=== PATIENT | male | born 1955 | race Caucasian/White ===

== ENCOUNTER 2020-05-20 16:38 | Emergency (ER) | payer OTHER ==
[2020-05-20] MEDS ORDERED: KETOROLAC TROMETHAMINE 60 MG/2 ML SDV IM ONE (17:27)
[2020-05-20] MEDS ORDERED: METHYLPREDNISOLONE INJ 125 MG/2 ML SDV IM ONE (17:27)
[2020-05-20] MEDS ORDERED: HYDROCODONE/ACETAMINOPHEN 5-325 MG (6 TAB/ER DISP) PO PRN (17:28)
--- NOTE | 2020-05-20 17:36 | ER Document Report ---
HPI - HPI Patient complains to provider of: chronic back pain Time Seen by Provider: 05/20/20 17:11 Context: 65-year-old male presents to the emergency room complaining of worsening chronic back pain that he has had ever since he had surgery back in 2017. States he was getting oxycodone after his surgery. [facility] and then will no longer give him any narcotics. States has been buying oxycodone on the street to help with his pain. He denies any new trauma or injury. States he has been incontinent since surgery and there is been no changes in his incontinence. States he is able to walk with a cane but is painful. States he is waiting for an appointment with a new primary care physician at the [place]. Associated Symptoms: None Exacerbated by: Movement Relieved by: Denies Similar symptoms previously: Yes - Chronic back pain Recently seen / treated by doctor: No - ROS Systems Reviewed and Negative: Yes All other systems reviewed and negative - CONSTITUTIONAL Constitutional: DENIES: Fever, Chills - NEURO Neurology: DENIES: Headache, Weakness - CARDIOVASCULAR Cardiovascular: DENIES: Chest pain - GASTROINTESTINAL Gastrointestinal: DENIES: Abdominal Pain - MUSCULOSKELETAL Musculoskeletal: REPORTS: Back Pain - DERM Skin Color: Normal Skin Problems: None Past Medical History - General Information source: Patient - Social History Smoking Status: Never Smoker Frequency of alcohol use: Previous history of alcohol abuse Drug Abuse: Marijuana Lives with: Friend Family History: Reviewed & Not Pertinent - Past Medical History Cardiac Medical History: Reports: Hx Hypertension Vertical Provider Document - CONSTITUTIONAL Agree With Documented VS: Yes Exam Limitations: No Limitations General Appearance: Moderate Distress - INFECTION CONTROL TRAVEL OUTSIDE OF THE U.S. IN LAST 30 DAYS: No - HEENT HEENT: Atraumatic, Normocephalic - NECK Neck: Normal Inspection, Supple - RESPIRATORY Respiratory: Breath Sounds Normal, No Respiratory Distress, Chest Non-Tender - CARDIOVASCULAR Cardiovascular: Regular Rate, Regular Rhythm - GI/ABDOMEN Gastrointestinal: Abdomen Soft, Abdomen Non-Tender - BACK Back: Abnormal Inspection - Tenderness from T4-T6, tenderness from L4-S1. Tenderness over the bilateral sciatic notches. Negative straight leg raising bilaterally. No obvious deformity noted. No step-offs.. negative: CVA Tenderness-Right, CVA Tenderness-Left - MUSCULOSKELETAL/EXTREMETIES Musculoskeletal/Extremeties: FROM - NEURO Level of Consciousness: Awake, Alert, Appropriate Motor/Sensory: No Motor Deficit, No Sensory Deficit - DERM Integumentary: Warm, Dry, No Rash Course - Re-evaluation Re-evalutation: 05/20/20 18:24 Patient is resting comfortably with decreased pain he is able to ambulate with the use of his cane. He is neurovascularly intact. Discussed with patient that with his chronic pain I can write him a one-time prescription for 12 Percocet but he cannot continue to get his narcotic prescriptions through the emergency room. 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 He is on Valium which he admitted to taking. He was counseled on the importance of outpatient follow-up with primary care physician for management of his chronic pain. Patient was given strict return to the emergency room guidelines. Return for any new or worsening symptoms. All questions were answered. Patient verbalized understanding and agrees with plan of care. 05/20/20 20:01 - Vital Signs Vital signs: Temp Pulse Resp BP Pulse Ox 98.6 F 64 20 141/98 H 97 05/20/20 16:44 05/20/20 16:44 05/20/20 16:44 05/20/20 16:44 05/20/20 16:44 Discharge - Discharge Clinical Impression: Chronic back pain Qualifiers: Back pain location: back pain in unspecified location Back pain laterality: midline Qualified Code(s): M54.9 - Dorsalgia, unspecified Condition: Stable Disposition: HOME, SELF-CARE Instructions: Chronic Back Pain ([facility]) Additional Instructions: Take medications as prescribed. Outpatient follow-up with your primary care physician as scheduled. Continue with your current home medications. Return to the emergency room for any new or worsening symptoms. Prescriptions: Prednisone [Deltasone 20 mg Tablet] See Protocol PO DAILY 9 Days #18 tablet Oxycodone HCl/Acetaminophen [Percocet 5-325 mg Tablet] 1 tab PO Q6H PRN #12 tablet PRN Reason: For Pain
[2020-05-20] MEDS ORDERED: HYDROCODONE/ACETAMINOPHEN 5-325 MG TABLET PO ONE (18:31)
[2020-05-20 18:57] VITALS: BP 158/87
== END 2020-05-20 18:51 | disposition home or self-care (01) ==
LOC: ER 16:38
DX: G89.29 Other chronic pain (principal); M54.9 Dorsalgia, unspecified; I10 Essential (primary) hypertension
CPT/HCPCS: 99284; 96372; J1885; J2930

== ENCOUNTER 2020-05-23 15:55 | Emergency (ER) | payer OTHER ==
[2020-05-23 17:44] LABS: ABSOLUTE MONOCYTES (AUTO) 0.7 10^3/uL (0.1-1.4); ABSOLUTE NEUT (AUTO) 3.6 10^3/uL (1.7-8.2); BASOPHILS % (AUTO) 0.3 % (0-2); EOSINOPHILS % (AUTO) 0.2 % (0-6); HEMATOCRIT 38.6 % (37.9-51.0); HEMOGLOBIN 12.7 g/dL (13.5-17.0); LYMPHOCYTES % (AUTO) 31.8 % (13-45); MEAN CORPUSCULAR HGB CONC 32.9 g/dL (32.0-36.0); MEAN CORPUSCULAR VOLUME 79 fl (80-97); MONOCYTES % (AUTO) 11.2 % (3-13); PLATELET COUNT 216 10^3/uL (150-450); RED BLOOD COUNT 4.87 10^6/uL (4.35-5.55); RED CELL DISTRIBUTION WIDTH 15.8 % (11.5-14.0); SEGMENTED NEUTROPHILS % (AUTO) 56.5 % (42-78); TOTAL CELLS COUNTED % (AUTO) 100 %; WHITE BLOOD COUNT 6.3 10^3/uL (4.0-10.5)
[2020-05-23 18:03] LABS: ACETAMINOPHEN < 10 ug/mL (10-30); ALBUMIN 3.9 g/dL (3.5-5.0); ALCOHOL < 10 mg/dL (NONE DETECTED); ALKALINE PHOSPHATASE 79 U/L (38-126); ANION GAP 6 (5-19); ASPARTATE AMINO TRANSFERASE 20 U/L (17-59); BILIRUBIN,DIRECT 0.2 mg/dL (0.0-0.4); BILIRUBIN,TOTAL 0.5 mg/dL (0.2-1.3); BLOOD UREA NITROGEN 18 mg/dL (7-20); CALCIUM 9.2 mg/dL (8.4-10.2); CARBON DIOXIDE 27 mmol/L (22-30); CHLORIDE 107 mmol/L (98-107); GLUCOSE 99 mg/dL (75-110); POTASSIUM 3.5 mmol/L (3.6-5.0); SALICYLATE < 1.0 mg/dL (2.0-20.0); TOTAL PROTEIN 6.4 g/dL (6.3-8.2)
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
--- NOTE | 2020-05-23 19:28 | EKG REPORT ---
SEVERITY:- NORMAL ECG - SINUS BRADYCARDIA : Confirmed by: Rosa Warren MD 23-May-2020 19:27:24
[2020-05-23] MEDS ORDERED: OXYCODONE-ACETAMINOPHEN 5-325 MG TABLET PO ONE (19:37)
--- NOTE | 2020-05-23 21:12 | ER Document Report ---
ED General - General TRAVEL OUTSIDE OF THE U.S. IN LAST 30 DAYS: No <FRANKIE WRAY - Last Filed: 05/23/20 21:06> <SARAHAMOR Adams - Last Filed: 05/23/20 23:33> - General Stated Complaint: POSSIBLE SEIZURE/FALL Time Seen by Provider: 05/23/20 16:51 - HPI Notes: Chief complaint: Lower back pain and tingling of both lower legs History of present illness: 65-year-old male followed by the [facility] with history of PTSD and prior history of prostatic CA who is been worked up very extensively by the [facility] in [facility] advised that he has some kind of a chronic neuropathy of the lower extremities. He has been told he is a "borderline diabetic". He has been treated with Neurontin and the right variety of pain medications. He recently came down here to live with 2 of his friends were retired police officers. He is in the process of establishing care with the [facility] locally. He has been seen by psychiatrist and is recently been given some benzodiazepine medications to deal with anxiety. He states that the [place] doctors have reluctant to give him any additional narcotic pain medication but he says his pain is getting worse and has now reached a point being intolerable. He says he has had numerous MRIs as recently as 6 weeks ago. He was told that he has a small iliac aneurysm feel was unrelated to his current symptoms. He also apparently has chronic degenerative disc disease. He was told there was no evidence of any recurrence of his prostate cancer any evidence of bony metastasis. Review of records here shows that this man was seen about 3 days ago by a nurse practitioner here and given a prescription for 12 tablets of Percocet. He still taking these and indicates that the help the pain somewhat already on totally relieve it. He came frustrated this afternoon and came to the lobby area and told the triage nurse that he "would be seen" immediately for his pain or he would shoot himself. He states now he clearly had no suicidal intent was simply frustrated trying to get attention. (FRANKIE WRAY) - Related Data Allergies/Adverse Reactions: barium iodide Allergy (Verified 05/23/20 18:41) Past Medical History - General Information source: Patient, [facility] Records - Social History Smoking Status: Former Smoker Frequency of alcohol use: None Drug Abuse: Marijuana Family History: Reviewed & Not Pertinent Patient has homicidal ideation: No - Past Medical History Cardiac Medical History: Reports: Hx Hypertension Neurological Medical History: Reports: Hx Seizures Psychiatric Medical History: Reports: Hx Depression Past Surgical History: Reports: Hx Cholecystectomy, Hx Orthopedic Surgery <FRANKIE WRAY - Last Filed: 05/23/20 21:06> Review of Systems <FRANKIE WRAY - Last Filed: 05/23/20 21:06> - Review of Systems Notes: Constitutional: As per HPI. HENT: As per HPI Eyes: Negative for drainage. Cardiovascular: Negative. Respiratory: As per HPI. Gastrointestinal: No vomiting or diarrhea. Genitourinary: Urinating normally. Musculoskeletal: As per HPI. Skin: Negative for rash. Neurological: As per HPI. 10 point ROS negative except as marked above and in HPI. (WRAYFRANKIE OWUSU) Physical Exam <FRANKIE WRAY - Last Filed: 05/23/20 21:06> - Vital signs Vitals: Temp Pulse Resp BP Pulse Ox 97.8 F 51 L 18 150/96 H 97 05/23/20 16:11 05/23/20 16:11 05/23/20 16:11 05/23/20 16:11 05/23/20 16:11 - Notes Notes: GENERAL: Elderly man appearing in no acute distress. SKIN: Good turgor no rashes. HEAD: Normocephalic atraumatic. EYES: PERRLA. EOMI. Conjunctivae and sclerae clear. EARS: CANALS AND TMS CLEAR. NOSE: CLEAR. MOUTH: Moist mucosa. Good dentition. No stridor or edema. No drooling. NECK: Supple. No masses or thyromegaly. No adenopathy. Carotids 2+ without bruits. No JVD. BACK: Symmetrical without tenderness. CHEST: Respirations unlabored. Breath sounds clear and symmetrical. HEART: Regular rhythm. No murmur gallop or rub. ABDOMEN: Soft nontender without masses, organomegaly or rebound. Bowel sounds normally active. No bruits. GENITALIA: Deferred. EXTREMITIES: No edema. No calf tenderness. Cap refill less than 1.5 seconds. Dorsalis pedis and posterior tibial pulses 3+ and symmetrical. NEUROLOGICAL: GCS 15. Alert and oriented x3. Normal gait. Fluent speech. Cranial nerves II through XII intact. Motor testing is normal and symmetrical. He is insensate from the knees distally and this is his baseline. PSYCHIATRIC: Appropriate affect. (FRANKIE WRAY) Course - Laboratory Result Diagrams: 05/23/20 16:12 05/23/20 16:12 <FRANKIE WRAY - Last Filed: 05/23/20 21:06> - Laboratory Result Diagrams: 05/23/20 16:12 05/23/20 16:12 <AMOR BALLARD JR - Last Filed: 05/23/20 23:33> - Re-evaluation Re-evalutation: 05/23/20 21:13 I have given his patient 2 Percocet tablets here. I am going to repeat imaging for him with a contrast CT of abdomen pelvis. He has been seen by psychiatry and they feel he could contract for safety and has no true suicidal intent. I would agree with this assessment. Patient is actually quite reasonable when I talked with him at some length about his overall condition. Plan at this time is to evaluate to be sure he does not have any new cause of his worsening back pain which would require urgent intervention. If he does not I told him that we should be able to give him some pain medications to take at home for the next day or 2 until he can [facility]. He seems very comfortable with this. Results of imaging studies are pending at this time and I am going to turn over further care at [address] Amor Ballard. (FRANKIE WRAY) - Vital Signs Vital signs: Temp Pulse Resp BP Pulse Ox 97.8 F 51 L 18 150/96 H 97 05/23/20 16:11 05/23/20 16:11 05/23/20 16:11 05/23/20 16:11 05/23/20 16:11 - Laboratory Laboratory results interpreted by me: 05/23/20 05/23/20 16:12 16:12 Hgb 12.7 L MCV 79 L MCH 26.0 L RDW 15.8 H Potassium 3.5 L Salicylates < 1.0 L Acetaminophen < 10 L Critical Care Note <AMOR BALLARD JR - Last Filed: 05/23/20 23:33> - Critical Care Note Comments: Please note Dr. Wray left this patient to me 1 hour after he was supposed to go home. The CT scan returned with the findings as read by radiologist as 2.9 cm AAA and should follow-up within 5 year for this. I advised patient 1 year for this. And also patient has diverticulosis but no diverticulitis and also patient has a right adrenal nodule and should be seen by clinician for rule out pheochromocytoma. There is nothing that would indicate here any acute problem. Advised patient to follow-up with personal doctor. I have evaluated patient at 2320 and he advises the reason why came in was for severe low back pain. He reports the Percocet that he was given here a few days ago does help with his pain and he will be seeing his personal doctor on 05 June. He reports he moved here from [place] to the [place] recently. I advised him of his CT reports and he advises me he began to have diarrhea yesterday. I will write him for Cipro Parafon forte and Carafate. Also you deny any suicidal ideation I agree with Dr. Wray about this. (AMOR BALLARD JR) Discharge <FRANKIE WRAY - Last Filed: 05/23/20 21:06> <AMOR BALLARD JR - Last Filed: 05/23/20 23:33> - Discharge Clinical Impression: AAA (abdominal aortic aneurysm) without rupture, Diverticulosis, Adrenal mass Diarrhea Qualifiers: Diarrhea type: unspecified type Qualified Code(s): R19.7 - Diarrhea, unspecified Chronic back pain Qualifiers: Back pain location: low back pain Back pain laterality: unspecified Sciatica presence: without sciatica Qualified Code(s): M54.5 - Low back pain; G89.29 - Other chronic pain Clinical Impression: (Ruled Out): Abdominal pain, AAA (abdominal aortic aneurysm) Condition: Stable Disposition: HOME, SELF-CARE Instructions: Abdominal Pain ([facility]), Low Back Pain ([facility]) Additional Instructions: Please note the radiologist read your CT as having 2.9 cm AAA and should follow- up with personal doctor for this and I recommended evaluation in 1 year. Radiologist recommended 5 years. Also it was found to have a right adrenal nod ule and should be ruled out by clinical personal doctor for pheochromocytoma. Also your CT revealed diverticulosis but not diverticulitis. Take pain medicine for your back pain as written and also follow-up with your doctor about your back pain. Call your doctor this week about this as well. May want to see pain management about your low back pain as well. [place] may see you for this. Also for your diarrhea we wrote for Cipro and Carafate. Return to ER if symptoms persist or worsen. Try not to advise anyone that you may commit suicide or homicide when you attempt to be seen in the ER otherwise you may be evaluated by psychiatry for this. Prescriptions: Sucralfate [Carafate 1 gm Tablet] 1 gm PO TID #40 tablet Ciprofloxacin HCl [Cipro 500 mg Tablet] 500 mg PO BID #20 tablet Chlorzoxazone [Parafon Forte Dsc 500 Mg Tablet] 500 mg PO BID #29 tablet
--- NOTE | 2020-05-23 21:29 | RADIOLOGY REPORT (SQ) ---
EXAM DESCRIPTION: CT abdomen and pelvis with contrast CLINICAL HISTORY: 65 years Male, hx. AAA, Back pain COMPARISON: None. TECHNIQUE: Axial images of the abdomen and pelvis were performed utilizing intravenous contrast, with sagittal and coronal reformatted images. This exam was performed according to our departmental dose-optimization program which includes use of Automated Exposure Control, adjustment of the mA and/or kV according to patient size and/or use of iterative reconstruction technique. FINDINGS: There is a 2.9 cm infrarenal abdominal aortic aneurysm. No evidence of leak. There is diverticulosis without diverticulitis. There is a 1.7 cm somewhat inhomogeneous right adrenal nodule, measuring 43 Hounsfield units. The appendix appears normal. No evidence of bowel obstruction. There is no significant radiographic abnormality of the liver, spleen, pancreas, left adrenal gland or kidneys. There are small bilateral renal cysts. No free air or free fluid. IMPRESSION: 2.9 cm abdominal aortic aneurysm. Recommend follow-up every 5 years. Reference: J Am Salome Radiol 2013;10:789-794. Right adrenal nodule as described. Pheochromocytoma should be excluded clinically. Biochemical lab evaluation for pheochromocytoma is recommended. If lab values are normal, then a follow-up adrenal washout CT scan in one year is recommended. If the nodule is stable after one year, then no further follow-up imaging is recommended.
[2020-05-23] MEDS ORDERED: DEXAMETHASONE SOD PHOS INJ 10 MG/1 ML VIAL IV ONE (23:28)
[2020-05-23] MEDS ORDERED: HYDROMORPHONE HCL INJ/PF 2 MG/ML AMPULE IV ONE (23:29)
[2020-05-23 23:59] VITALS: BP 160/83
== END 2020-05-24 | disposition home or self-care (01) ==
LOC: ER 15:55
DX: G89.29 Other chronic pain (principal); M54.5 Low back pain; G62.9 Polyneuropathy, unspecified; R19.7 Diarrhea, unspecified; I71.4 Abdominal aortic aneurysm, without rupture; K57.90 Diverticulosis of intestine, part unspecified, without perforation or abscess without bleeding; E27.9 Disorder of adrenal gland, unspecified; I10 Essential (primary) hypertension; F12.10 Cannabis abuse, uncomplicated; F43.10 Post-traumatic stress disorder, unspecified; F32.9 Major depressive disorder, single episode, unspecified; F41.9 Anxiety disorder, unspecified; F51.5 Nightmare disorder; Z63.4 Disappearance and death of family member; Z79.899 Other long term (current) drug therapy; Z85.46 Personal history of malignant neoplasm of prostate; Z87.891 Personal history of nicotine dependence; Z91.041 Radiographic dye allergy status
CPT/HCPCS: 93005; 99285; 96374; 96375; 36415; 80307 ×3; 85025; 80053; 74177; 93010; J1170; J1100

== ENCOUNTER 2020-08-26 12:49 | Emergency (ER) | payer OTHER ==
[2020-08-26 13:41] VITALS: BP 114/77
--- NOTE | 2020-08-26 15:01 | ER Document Report ---
ED General - General Stated Complaint: DIARRHEA, BACK PAIN, LEG NUMBNESS Primary Care Provider: [facility] [Provider Group] - Follow up as needed TRAVEL OUTSIDE OF THE [place] IN LAST 30 DAYS: No - HPI Notes: Patient is a 67-year-old male with a history of chronic back pain and neuropathy who presents for back pain. Patient states he called the [facility] this morning as he is running low on his pain medication which they prescribed. They told him to come to the emergency department. He has an appointment with his primary care provider in 2 days. Patient denies any new symptoms or pain, including saddle paresthesia, urinary and bowel incontinence. He denies chest pain, shortness of breath, abdominal pain, fever, and vomiting. He states the back pain he has today is his chronic back pain that he has had for the past 4 years. He states he has a history of a herniated disks. - Related Data Allergies/Adverse Reactions: barium iodide Allergy (Verified 05/23/20 18:41) Past Medical History - General Information source: Patient - Social History Smoking Status: Unknown if Ever Smoked Family History: Reviewed & Not Pertinent - Past Medical History Cardiac Medical History: Reports: Hx Hypertension Neurological Medical History: Reports: Hx Seizures Psychiatric Medical History: Reports: Hx Depression Past Surgical History: Reports: Hx Cholecystectomy, Hx Orthopedic Surgery Review of Systems - Review of Systems Constitutional: No symptoms reported EENT: No symptoms reported Cardiovascular: No symptoms reported Respiratory: No symptoms reported Gastrointestinal: No symptoms reported Genitourinary: No symptoms reported Male Genitourinary: No symptoms reported Musculoskeletal: See HPI Skin: No symptoms reported Hematologic/Lymphatic: No symptoms reported Neurological/Psychological: See HPI Physical Exam - Vital signs Vitals: Temp Pulse Resp BP Pulse Ox 98.7 F 55 L 16 114/77 97 08/26/20 13:40 08/26/20 13:40 08/26/20 13:40 08/26/20 13:40 08/26/20 13:40 - Notes Notes: PHYSICAL EXAMINATION: VITALS: Vitals reviewed and within normal limits. GENERAL: Well-appearing, well-nourished and in no acute distress. HEAD: Atraumatic, normocephalic. EYES: Pupils equal, round, and reactive to light, extraocular movements intact, sclera anicteric, conjunctiva are normal. ENT: Nares patent. Moist mucous membranes. Oropharynx clear without exudates. NECK: Normal range of motion, supple without lymphadenopathy. LUNGS: Breath sounds clear to auscultation bilaterally and equal. No wheezes, rales, or rhonchi. HEART: Regular, rate, and rhythm without murmurs. ABDOMEN: Soft, nontender, normoactive bowel sounds. No guarding, no rebound. No masses appreciated. EXTREMITIES: Normal range of motion, no pitting or edema. No cyanosis. BACK: 5 out of 5 strength both distally and proximally bilateral lower extremities. No midline tenderness over the vertebrae. 2+ patellar reflexes bilaterally. No clonus. Sensation grossly intact in the bilateral lower extremities above the knee but decreased sensation below the knee. Patient is able to ambulate without difficulty using a cane. NEUROLOGICAL: No focal neurological deficits. Moves all extremities spontaneously and on command. PSYCH: Normal mood, normal affect. SKIN: Warm, Dry, normal turgor, no rashes or lesions noted. Course - Re-evaluation Re-evalutation: Presentation of a well appearing patient complaining of chronic back pain. No rapid progression of symptoms, systemic symptoms including fevers, chills, weight loss, history of recent bacterial infection, bilateral symptoms, numbness, weakness, difficulty walking, urinary retention or bowel incontinence, personal history of cancer, immunosuppression, diabetes, known AAA, or history of IV drug use. Exam is without point tenderness over vertebral bodies, p ulsatile abdominal mass, and patient has symmetric and intact lower extremity strength, and reflexes without clonus. 2+ symmetric medial malleolar and dorsalis pedis pulses. Sensation loss in his lower extremities is chronic and [facility]. Based on history and physical, I have a very low suspicion of a concerning etiology of pain including epidural compression syndrome, spinal infection, transverse myelitis, malignancy, abdominal aortic aneurysm, renal colic, acute lower extremity claudication, neurogenic claudication, ankylosing spondylitis, or other intra-abdominal process. As patients complaints today are chronic he is denying any work up and plans to follow up with his PCP at his scheduled appointment in two days. Patient offered an prescription for muscle relaxers but he declined as he has some at home. Patient will follow up with his PCP concerning his chronic pain medication. Return precautions given. Patient will be discharged home. Patient understands and is in agreement with the plan. - Vital Signs Vital signs: Temp Pulse Resp BP Pulse Ox 98.7 F 55 L 16 114/77 97 08/26/20 13:40 08/26/20 13:40 08/26/20 13:40 08/26/20 13:40 08/26/20 13:40 - Laboratory Results Critical Laboratory Results Reviewed: No Critical Results - Radiology Results Critical Radiology Results Reviewed: No Critical Results Discharge - Discharge Clinical Impression: Chronic back pain Qualifiers: Back pain location: low back pain Back pain laterality: bilateral Sciatica presence: with sciatica Sciatica laterality: bilateral sciatica Qualified Code(s): M54.42 - Lumbago with sciatica, left side Condition: Stable Disposition: HOME, SELF-CARE Additional Instructions: You have been seen in the Emergency Department (ED) today for back pain. Your workup and exam have not shown any acute abnormalities and you are likely suffering from muscle strain or possible problems with your discs, but there is no treatment that will fix your symptoms at this time. Continue to keep active and avoid prolonged periods of bed rest. Please follow up with your doctor as soon as possible regarding today's ED visit and your back pain. Return to the ED for worsening back pain, fever, weakness or numbness of either leg, or if you develop either (1) an inability to urinate or have bowel movements, or (2) loss of your ability to control your bathroom functions (if you start having "accidents"), or if you develop other new symptoms that concern you.concern you. Referrals: [facility] [Provider Group] - Follow up as needed
== END 2020-08-26 15:45 | disposition home or self-care (01) ==
LOC: ER 12:49
DX: M54.42 Lumbago with sciatica, left side (principal); R19.7 Diarrhea, unspecified; M54.9 Dorsalgia, unspecified; R20.0 Anesthesia of skin; G89.29 Other chronic pain; G62.9 Polyneuropathy, unspecified; I10 Essential (primary) hypertension
CPT/HCPCS: 99282